=== PATIENT | female | born 1965 | race Two or more races ===

== ENCOUNTER 2017-12-15 08:56 | Outpatient (CLI) | payer OTHER | END 2017-12-15 09:08 | disposition home or self-care (01) | LOC: RAD 501 08:56 | DX: M54.2 Cervicalgia (principal); M25.552 Pain in left hip ==

== ENCOUNTER 2024-03-02 09:30 | Inpatient (IN) | payer OTHER ==
[~2024-03-02] VITALS: Ht 154.9 cm; Wt 62.1 kg
[2024-03-02 13:17] LABS: HEMATOCRIT 46.6 % (36.0-45.00); HEMOGLOBIN 15.9 g/dL (12.0-15.00); MEAN CELL VOLUME 91.7 fL (80.00-100.00); MEAN CORPUSCULAR HEMOGLOBIN 31.3 pg (27.00-32.0); MEAN CORPUSCULAR HGB CONC 34.1 g/dl (32.0-36.0); PLATELET COUNT 282 K/uL (150-450); RED BLOOD COUNT 5.08 M/uL (4.00-6.00); RED CELL DISTRIBUTION WIDTH 12.8 % (11.5-14.5)
[2024-03-02 13:41] LABS: URINE APPEARANCE Clear; URINE BILIRRUBIN Negative (NEGATIVE); URINE BLOOD Negative; URINE COLOR Yellow; URINE GLUCOSE Negative (NEGATIVE); URINE KETONE Negative (NEGATIVE); URINE LEUKOCYTE Moderate; URINE NITRATE Negative; URINE PROTEIN Negative (NEGATIVE); URINE UROBILINOGEN 0.2 E.U./dl
[2024-03-02] MEDS ORDERED: PROMETRIUM200 MG PO (13:43)
[2024-03-02 13:44] LABS: URINE BACTERIA 690.3 uL (0.0-1933); URINE EPITHELIAL CELLS 40.8 uL (0.0-38.8); URINE RBC 20.9 uL (0.0-20.8); URINE WBC 67.5 uL (0.0-23.2)
[2024-03-02] MEDS ORDERED: YUVAFEM10 MCG VAG (13:44)
[2024-03-02 14:08] LABS: INR 1.03; PARTIAL THROMBOPLASTIN TIME 32.2 SECONDS (22.0-34.0); PROTHROMBIN TIME 11.2 SECONDS (9.0-11.5)
[2024-03-02 14:09] LABS: ALBUMIN 3.9 gm/dL (3.4-5.0); BILIRUBIN TOTAL 0.56 mg/dL (0.3-1.2); CALCIUM 9.5 mg/dL (8.5-10.1); CREATININE SERUM 0.95 mg/dL (0.55-1.02); GFR 60.42; GLOBULINA 3.2 G/DL (2.4-3.5); POTASSIUM 4.55 mEq/L (3.5-5.1); TOTAL PROTEIN 7.1 gm/dL (6.4-8.2)
[2024-03-10] MEDS ORDERED: METRONIDAZOLE/SODIUM CHLORIDE 500 MG/100 ML PIGGYBACK IV ONE (09:33)
[2024-03-10] MEDS ORDERED: CEFTRIAXONE SODIUM 2,000 MG VIAL ONE (09:33)
[2024-03-10] MEDS ORDERED: BUPIVACAINE HCL/Mpf 0.5% 10ML VIAL ONE (10:22)
[2024-03-10] MEDS ORDERED: LIDOCAINE HCL 1%/EPINEPHRINE 20ML VIAL IJ ONE (10:23)
[2024-03-10] MEDS ORDERED: ONDANSETRON HCL 2 MG/ML VIAL IV PRN (12:45)
[2024-03-10] MEDS ORDERED: OxyCODONE HCL 5 MG TABLET (ROXICODONE) PO PRN (12:45)
[2024-03-10] MEDS ORDERED: 0.9 % SODIUM CHLORIDE 1,000 ML IV SCH (12:45)
[2024-03-10] MEDS ORDERED: DEXTROSE 50 % IN WATER 0.5 G/ML DISP.SYRIN IV PRN (12:45)
[2024-03-10] MEDS ORDERED: MORPHINE SULFATE 4 MG/ML CARTRIDGE IV PRN (12:45)
[2024-03-10] MEDS ORDERED: HYOSCYAMINE SULFATE 0.125 MG TAB.SUBL SL SCH (13:00)
[2024-03-10] MEDS ORDERED: ACETAMINOPHEN 500 MG GEL..CAP PO SCH (14:00)
[2024-03-10] MEDS ORDERED: MORPHINE SULFATE 4 MG/ML VIAL IV ONE ×3 (14:35→17:10)
[2024-03-10 15:09] LABS: HEMATOCRIT 44.1 % (36.0-45.00); HEMOGLOBIN 14.8 g/dL (12.0-15.00); MEAN CELL VOLUME 92.2 fL (80.00-100.00); MEAN CORPUSCULAR HEMOGLOBIN 30.8 pg (27.00-32.0); MEAN CORPUSCULAR HGB CONC 33.4 g/dl (32.0-36.0); PLATELET COUNT 245 K/uL (150-450); RED BLOOD COUNT 4.79 M/uL (4.00-6.00); RED CELL DISTRIBUTION WIDTH 12.6 % (11.5-14.5)
[2024-03-10 15:35] LABS: ALBUMIN 3.3 gm/dL (3.4-5.0); CALCIUM 8.7 mg/dL (8.5-10.1); CREATININE SERUM 0.89 mg/dL (0.55-1.02); GFR 65.14; POTASSIUM 4.17 mEq/L (3.5-5.1)
[2024-03-10] MEDS ORDERED: GABAPENTIN 300 MG CAPSULE PO SCH (17:00)
[2024-03-10] MEDS ORDERED: POLYETHYLENE GLYCOL 3350 17 GM BLIST.PACK PO SCH (17:00)
[2024-03-10] MEDS ORDERED: METRONIDAZOLE/SODIUM CHLORIDE 500 MG/100 ML PIGGYBACK IV SCH (17:00)
[2024-03-10] MEDS ORDERED: ONDANSETRON HCL 2 MG/ML VIAL ONE (17:22)
[2024-03-10 18:43] VITALS: BP 118/70; O2SAT 97
[2024-03-10] MEDS ORDERED: FAMOTIDINE/PF 20 MG/2 ML VIAL IV PUSH SCH (21:00)
[2024-03-11 00:50] VITALS: BP 109/74; O2SAT 97
[2024-03-11 07:38] LABS: HEMOGLOBIN 13.5 g/dL (12.0-15.00); MEAN CORPUSCULAR HEMOGLOBIN 30.7 pg (27.00-32.0); MEAN CORPUSCULAR HGB CONC 33.8 g/dl (32.0-36.0); PLATELET COUNT 220 K/uL (150-450); RED CELL DISTRIBUTION WIDTH 12.6 % (11.5-14.5)
[2024-03-11 08:00] VITALS: BP 112/72; O2SAT 95
[2024-03-11 08:30] LABS: ALBUMIN 3.1 gm/dL (3.4-5.0); CALCIUM 8.1 mg/dL (8.5-10.1); CREATININE SERUM 0.74 mg/dL (0.55-1.02); GFR 80.61; MAGNESIUM 1.9 mg/dL (1.8-2.4); POTASSIUM 3.71 mEq/L (3.5-5.1)
[2024-03-11] MEDS ORDERED: POTASSIUM PHOS,M-BASIC-D-BASIC 3 MM/ML VIAL IV NR (09:00)
[2024-03-11 16:00] VITALS: BP 127/72; O2SAT 95
[2024-03-11] MEDS ORDERED: ENOXAPARIN SODIUM 40 MG/0.4 ML SYRINGE SUBCUTANEO SCH (17:00)
[2024-03-12 01:07] VITALS: BP 168/89; O2SAT 96
[2024-03-12 02:16] VITALS: BP 139/80
[2024-03-12 08:00] VITALS: BP 113/71; O2SAT 97
[2024-03-12 08:25] LABS: HEMATOCRIT 40.4 % (36.0-45.00); HEMOGLOBIN 14.1 g/dL (12.0-15.00); MEAN CELL VOLUME 89.8 fL (80.00-100.00); MEAN CORPUSCULAR HEMOGLOBIN 31.2 pg (27.00-32.0); MEAN CORPUSCULAR HGB CONC 34.8 g/dl (32.0-36.0); PLATELET COUNT 219 K/uL (150-450); RED CELL DISTRIBUTION WIDTH 12.6 % (11.5-14.5)
[2024-03-12 08:29] LABS: CALCIUM 8.3 mg/dL (8.5-10.1); CREATININE SERUM 0.8 mg/dL (0.55-1.02); GFR 73.67; PHOSPHOROUS 2.2 mg/dL (2.5-4.9); POTASSIUM 4.16 mEq/L (3.5-5.1)
[2024-03-12] MEDS ORDERED: ENOXAPARIN SODIUM 40 MG/0.4 ML SYRINGE SUBCUTANEO SCH (09:00)
[2024-03-12] MEDS ORDERED: POTASSIUM PHOS,M-BASIC-D-BASIC 3 MM/ML VIAL IV NR (11:24)
[2024-03-12 16:00] VITALS: BP 133/84; O2SAT 95
[2024-03-13 00:50] VITALS: BP 129/77; O2SAT 97
[2024-03-13 08:00] VITALS: BP 110/70; O2SAT 96
[2024-03-13 08:28] LABS: HEMATOCRIT 40.2 % (36.0-45.00); HEMOGLOBIN 13.5 g/dL (12.0-15.00); MEAN CELL VOLUME 90.9 fL (80.00-100.00); MEAN CORPUSCULAR HEMOGLOBIN 30.6 pg (27.00-32.0); MEAN CORPUSCULAR HGB CONC 33.7 g/dl (32.0-36.0); PLATELET COUNT 229 K/uL (150-450); RED BLOOD COUNT 4.42 M/uL (4.00-6.00); RED CELL DISTRIBUTION WIDTH 12.3 % (11.5-14.5)
[2024-03-13 08:51] LABS: CALCIUM 7.9 mg/dL (8.5-10.1); CREATININE SERUM 0.65 mg/dL (0.55-1.02); GFR 93.62; POTASSIUM 4.06 mEq/L (3.5-5.1)
[2024-03-13 16:00] VITALS: BP 121/76; O2SAT 96
[2024-03-14 00:24] VITALS: BP 126/84; O2SAT 97
[2024-03-14 06:13] LABS: HEMATOCRIT 37.9 % (36.0-45.00); HEMOGLOBIN 13.4 g/dL (12.0-15.00); MEAN CELL VOLUME 90.7 fL (80.00-100.00); MEAN CORPUSCULAR HEMOGLOBIN 32.2 pg (27.00-32.0); MEAN CORPUSCULAR HGB CONC 35.5 g/dl (32.0-36.0); PLATELET COUNT 219 K/uL (150-450); RED BLOOD COUNT 4.18 M/uL (4.00-6.00); RED CELL DISTRIBUTION WIDTH 12.7 % (11.5-14.5)
[2024-03-14 07:30] LABS: ALBUMIN 2.8 gm/dL (3.4-5.0); CALCIUM 8.4 mg/dL (8.5-10.1); CREATININE SERUM 0.68 mg/dL (0.55-1.02); GFR 88.87; MAGNESIUM 2.2 mg/dL (1.8-2.4); POTASSIUM 4.11 mEq/L (3.5-5.1)
[2024-03-14 07:48] LABS: PHOSPHOROUS 1.6 mg/dL (2.5-4.9)
[2024-03-14 08:00] VITALS: BP 114/76; O2SAT 97
[2024-03-14] MEDS ORDERED: POTASSIUM PHOS,M-BASIC-D-BASIC 3 MM/ML VIAL IV ONE (11:00)
[2024-03-14] MEDS ORDERED: HYOSCYAMINE0.125 M1 SL (11:29)
[2024-03-14] MEDS ORDERED: INTESTINEX680 M1 PO (11:31)
[2024-03-14] MEDS ORDERED: TRAM1TAB98 PO (11:31)
== END 2024-03-14 14:49 | disposition home or self-care (01) | DRG 331 ==
LOC: O/R 03-10 08:09 → SURH 03-10 09:30
PROVIDERS: Internal Medicine Geriatric Medicine; ADMIT Surgery; ATTEND Surgery
PROC: 07BB4ZZ Excision of Mesenteric Lymphatic, Percutaneous Endoscopic Approach (ICD-10-PCS; 2024-03-10)
PROC: 0DTF4ZZ Resection of Right Large Intestine, Percutaneous Endoscopic Approach (ICD-10-PCS; principal; 2024-03-10 14:15)
DX: C18.2 Malignant neoplasm of ascending colon (principal); R19.5 Other fecal abnormalities; R19.4 Change in bowel habit

== ENCOUNTER 2024-04-18 06:28 | Day surgery (SDC) | payer OTHER ==
[2024-04-13 13:20] LABS: INR 1.04; PARTIAL THROMBOPLASTIN TIME 29.2 SECONDS (22.0-34.0); PROTHROMBIN TIME 11.3 SECONDS (9.0-11.5)
[~2024-04-18 06:28] MED LIST: HYOSCYAMINE0.125 M1 SL; INTESTINEX680 M1 PO; PROMETRIUM200 MG PO; TRAM1TAB98 PO; YUVAFEM10 MCG VAG
[2024-04-18] MEDS ORDERED: HEPARIN SODIUM,PORCINE 500 UNITS/5 ML VIAL IV ONE (08:15)
[2024-04-18] MEDS ORDERED: TRAM1TAB98 PO (08:20)
[2024-04-18] MEDS ORDERED: CEFAZOLIN SODIUM 1,000 MG VIAL IV ONE (09:00)
[2024-04-18] MEDS ORDERED: BUPIVACAINE HCL 30 ML VIAL IJ ONE (09:00)
[2024-04-18] MEDS ORDERED: LIDOCAINE HCL 1%/EPINEPHRINE 20ML VIAL IJ ONE (09:00)
== END 2024-04-18 11:25 | disposition home or self-care (01) ==
LOC: CIR.AMB 06:28
PROVIDERS: ATTEND Surgery
DX: C18.2 Malignant neoplasm of ascending colon (principal)
CPT/HCPCS: 36561; C1751